=== PATIENT | male | born 1935 | race Caucasian/White ===

== ENCOUNTER 2016-11-10 09:04 | Observation (INO) | payer OTHER ==
[~2016-11-10] VITALS: Ht 195.6 cm; Wt 89.0 kg
[2016-11-10] VITALS (9 sets, daily range): BP systolic 100–149; BP diastolic 55–72; PULSE 54–76; RESP 16–18; TEMP 97.5–97.9; O2SAT 96–99
[~2016-11-10 09:04] MED LIST: B-12500T3 PO; CO Q200C3 PO; FLON0.053; GABA300C3 PO; GABA600T PO; GLIP2.5T6 PO; GLUC500C3 PO; LEVE500 PO; LIPO150C2 PO; LOSA100T3 PO; LOSARTAN 25 MG TAB PO SCH; LOVA1TAB47 PO; MAGN500T4 PO; METO25 PO; OMEP20TA39 PO; TAB-TAB PO; TERA2CAP3 PO; VESI5TAB PO
[2016-11-10] MEDS ORDERED: GLIP5TAB8 PO (09:34)
[2016-11-10] MEDS ORDERED: LOSA50TA2 PO (09:34)
[2016-11-10] MEDS ORDERED: LOVA20TA PO (09:34)
[2016-11-10] MEDS ORDERED: GABA300C5 PO (09:34)
[2016-11-10] MEDS ORDERED: FLUT50SP EACH NARE (09:34)
[2016-11-10] MEDS ORDERED: OMEP20TA PO (09:34)
[2016-11-10] MEDS ORDERED: TERA2CAP3 PO (09:34)
[2016-11-10] MEDS ORDERED: LEVE500 PO (09:34)
[2016-11-10] MEDS ORDERED: METO25TA3 PO (09:34)
--- NOTE | 2016-11-10 09:35 | PD ---
HPI Chief Complaint: Cardiac Complaint Time Seen by Provider: 09:27 Travel History International Travel<30 days: No Contact w/Intl Traveler<30days: No Traveled to known affect area: No History of Present Illness HPI 81-year-old male with a history of hypertension, hyperlipidemia, diabetes mellitus, who presents today with an episode of elevated heart rate with associated chest pain. When paramedics arrived, they found the patient to be in SVT. They administered a dental cart and he converted to sinus rhythm. The patient stated that he was feeling palpitations and dizziness and having chest pain and tightness with the palpitations. He has no history of previous SVT. The patient does have a strong family history where his father had an HI at 40 and his brother had one at 29. He does have risk factors being diabetes, hypertension, hyperlipidemia. The patient was not given aspirin. The patient does not take aspirin secondary to a previous subdural hematoma. There are no other complaints time my examination. 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) Diverticulitis: Yes Gastrointestinal Disorders: Yes GERD: Yes Genitourinary: Yes (FREQUENT URINATION) Hypertension: Yes Respiratory: Yes Immunizations Current: Yes Tetanus Vaccination: > 5 Years Influenza Vaccination: No Past Surgical History Abdominal Surgery: Yes (COLON SURGERY) Cholecystectomy: Yes Tonsillectomy: Yes Other Surgery: Yes (hernia repair) Social History Alcohol Use: No Tobacco Use: No (QUIT 1964) Substance Use: No Allergies-Medications (Allergen,Severity, Reaction): Coded Allergies: No Known Allergies (Verified , 11/10/16) Reported Meds & Prescriptions Reported Meds & Active Scripts Active Reported Diphenhydramine HCl 25 Mg Tablet 25 Tab PO DAILY Co Q-10 (Coenzyme Q10 (Ubidecarenone)) 300 Mg Cap 300 Tab PO DAILY Men's Multi-Vitamin (Multivitamin) 1 Each Tablet 1 Tab PO DAILY Potassium Gluconate 595 Mg Tab 595 Cap PO DAILY Magnesium Citrate 100 Mg Tab 500 Mg PO DAILY PRN Vitamin B-12 (Cyanocobalamin) 1,000 Mcg Tab 2,500 Mcg PO DAILY Glucosamine (Glucosamine Sulfate) 500 Mg Cap 400 Mg PO BID Keppra (Levetiracetam) 500 Mg Tab 500 Mg PO BID Lovastatin 20 Mg Tab 20 Mg PO DAILY Omeprazole 20 Mg Tab 20 Mg PO DAILY Gabapentin 300 Mg Cap 300 Mg PO TID Losartan-Hydrochlorothiazide 50-12.5 Mg Tab 0.5 Tab PO DAILY Metoprolol Tartrate 25 Mg Tab 12.5 Mg PO BID Fluticasone Nasal [place] 50 Mcg/Act Naspr 50 Mcg EACH NARE BID 50 mcg/spray Terazosin (Terazosin HCl) 2 Mg Cap 2 Mg PO BID Glipizide 5 Mg Tab 2.5 Mg PO BIDAC Take 30 minutes before a meal Review of Systems Except as stated in HPI: all other systems reviewed are Neg HENT: Positive: Lightheadedness, No: Headaches Cardiovascular: Positive: Chest Pain or Discomfort, Palpitations, Tachycardia Respiratory: No: Cough, Shortness of Breath Gastrointestinal: No: Nausea, Vomiting, Abdominal Pain Musculoskeletal: Positive: Weakness, No: Edema, Pain Neurologic: Positive: Weakness (with the palpitations none now.), Dizziness, No: Syncope, Headache Physical Exam Narrative GENERAL: Well-developed well-nourished gentleman in no acute distress SKIN: Focused skin assessment warm/dry. HEAD: Atraumatic. Normocephalic. EYES: No scleral icterus. No injection or drainage. ENT: No nasal bleeding or discharge. Mucous membranes pink and moist. NECK: Trachea midline. Supple. CARDIOVASCULAR: Regular rate and rhythm. Rate in the 70s on my exam. No murmur appreciated. RESPIRATORY: No accessory muscle use. Clear to auscultation. Breath sounds equal bilaterally. GASTROINTESTINAL: Abdomen soft, non-tender, nondistended. MUSCULOSKELETAL: No obvious deformities. No clubbing. No cyanosis. No edema. NEUROLOGICAL: Awake and alert. No obvious cranial nerve deficits. Motor grossly within normal limits. Normal speech. PSYCHIATRIC: Appropriate mood and affect; insight and judgment normal. Data Data Last Documented VS Vital Signs Date Time Temp Pulse Resp B/P Pulse Ox O2 Delivery O2 Flow Rate FiO2 11/10/16 09:38 68 17 118/66 99 Room Air 101/55 11/10/16 09:11 97.9 Orders Electrocardiogram (11/10/16 ) Electrocardiogram (11/10/16 09:27) Ckmb (Isoenzyme) Profile (11/10/16 09:27) Complete Blood Count With Diff (11/10/16 09:27) Comprehensive Metabolic Panel (6/21/17 09:27) Magnesium (Mg) (11/10/16:) Prothrombin Time / Inr (Pt) (11/10/16) Act Partial Throm Time (Ptt) (11/10/16) Troponin I (11/10/16) Chest, Single Ap (11/10/16:) Ecg Monitoring (11/10/16) Bilateral Bp Monitoring (11/10/16) Iv Access Insert/Monitor (11/10/16) Oximetry (11/10/16) Oxygen Administration (11/10/16) Sodium Chloride 0.9% Flush (Ns Flush) (11/10/16) Thyroid Stimulating Hormone (11/10/16) CKMB (11/10/16:) CKMB% (11/10/16:) Sodium Chlorid 0.9% 500 Ml Inj (Ns 500 M (11/10/16 10:45) Labs Laboratory Tests Test 11/10/16: White Blood Count 10.3 TH/MM3 Red Blood Count 3.93 MIL/MM3 Hemoglobin 12.2 GM/DL Hematocrit 36.3 % Mean Corpuscular Volume 92.4 FL Mean Corpuscular Hemoglobin 31.1 PG Mean Corpuscular Hemoglobin 33.6 % Concent Red Cell Distribution Width 14.3 % Platelet Count 165 TH/MM3 Mean Platelet Volume 9.5 FL Neutrophils (%) (Auto) 79.6 % Lymphocytes (%) (Auto) 10.7 % Monocytes (%) (Auto) 5.7 % Eosinophils (%) (Auto) 3.7 % Basophils (%) (Auto) 0.3 % Neutrophils # (Auto) 8.2 TH/MM3 Lymphocytes # (Auto) 1.1 TH/MM3 Monocytes # (Auto) 0.6 TH/MM3 Eosinophils # (Auto) 0.4 TH/MM3 Basophils # (Auto) 0.0 TH/MM3 CBC Comment DIFF FINAL Differential Comment Prothrombin Time 10.5 SEC Prothromb Time International 1.0 RATIO Ratio Activated Partial 27.8 SEC Thromboplast Time Sodium Level 145 MEQ/L Potassium Level 4.1 MEQ/L Chloride Level 111 MEQ/L Carbon Dioxide Level 24.4 MEQ/L Anion Gap 10 MEQ/L Blood Urea Nitrogen 30 MG/DL Creatinine 1.31 MG/DL Estimat Glomerular Filtration 53 ML/MIN Rate Random Glucose 168 MG/DL Calcium Level 8.3 MG/DL Magnesium Level 2.2 MG/DL Total Bilirubin 0.5 MG/DL Aspartate Amino Transf 25 U/L (AST/SGOT) Alanine Aminotransferase 25 U/L (ALT/SGPT) Alkaline Phosphatase 67 U/L Total Creatine Kinase 107 U/L Creatine Kinase MB 1.9 NG/ML Troponin I LESS THAN 0.02 NG/ML Total Protein 6.7 GM/DL Albumin 3.2 GM/DL Thyroid Stimulating Hormone 1.450 uIU/ML 3rd Gen [facility] Medical Decision Making Medical Screen Exam Complete: Yes Emergency Medical Condition: Yes Differential Diagnosis SVT versus ACS versus anginal equivalent Narrative Course 81-year-old male presents after having an episode of SVT. The patient had chest pain associated with it. The patient's cardiac enzymes are within normal limits. He converted to a normal sinus rhythm after dental cart via EMS. The patient has multiple risk factors for cardiac disease including diabetes mellitus, hypertension, hyperlipidemia. He also has a strong family history where his father had an HI at 40 and his brother had one at 29. Given this, I feel he should be ruled out in the chest pain center. I discussed with both patient and his and they're amenable to the plan. The patient's BUN/ creatinine were slightly elevated so he was given 500 cc of normal saline. His blood sugar was also elevated but less than 200 with his history of diabetes mellitus. Diagnosis Primary Impression: Chest pain Additional Impressions: SVT (supraventricular tachycardia) Hypertension Diabetes mellitus Hyperlipidemia Admitting Information Admitting Physician Requests: Observation Suman Villatoro MD Nov 10, 2016 09:35
[2016-11-10 09:49] LABS: AUTOMATED NEUTROPHIL # 8.2 TH/MM3 (1.8-7.7); BASOPHIL % 0.3 % (0.0-2.0); EOSINOPHIL # 0.4 TH/MM3 (0-0.4); EOSINOPHIL % 3.7 % (0.0-4.0); HEMATOCRIT 36.3 % (39.0-51.0); HEMO FLAGS DIFF FINAL; LYMPH % 10.7 % (9.0-44.0); LYMPHOCYTE # 1.1 TH/MM3 (1.0-4.8); MEAN CELL VOLUME 92.4 FL (80.0-100.0); MEAN CORPUSCULAR HEMOGLOBIN 31.1 PG (27.0-34.0); MEAN CORPUSCULAR HGB CONC 33.6 % (32.0-36.0); MONO % 5.7 % (0.0-8.0); NEUT % 79.6 % (16.0-70.0); PLATELET COUNT 165 TH/MM3 (150-450); RED BLOOD COUNT 3.93 MIL/MM3 (4.50-5.90); RED CELL DISTRIBUTION WIDTH 14.3 % (11.6-17.2); WHITE BLOOD COUNT 10.3 TH/MM3 (4.0-11.0)
[2016-11-10] MEDS ORDERED: GLUC500C5 PO (09:57)
[2016-11-10] MEDS ORDERED: VITA10002 PO (09:57)
[2016-11-10] MEDS ORDERED: MULT-267 PO (09:57)
[2016-11-10] MEDS ORDERED: MAGN100T2 PO (09:57)
[2016-11-10] MEDS ORDERED: DIPH25TA5 PO (09:57)
[2016-11-10] MEDS ORDERED: POTA595T PO (09:57)
[2016-11-10] MEDS ORDERED: CO Q300C PO (09:57)
[2016-11-10 09:58] LABS: APTT (PATIENT) 27.8 SEC (24.3-30.1); PROTHROMBIN TIME - PATIENT 10.5 SEC (9.8-11.6)
--- NOTE | 2016-11-10 10:18 | RADRPT ---
EXAM DATE/TIME: 11/10/2016 09:32 [facility] COMPARISON: CHEST SINGLE AP, November 26, 2014, 19:58. INDICATIONS : Chest pain. MEDICAL HISTORY : None. SURGICAL HISTORY : None. ENCOUNTER: Initial ACUITY: 1 day PAIN SCORE: 5/10 LOCATION: Bilateral chest FINDINGS: A single view of the chest demonstrates the lungs to be symmetrically aerated without evidence of mas s, infiltrate or effusion. The cardiomediastinal contours are unremarkable. Osseous structures are intact. CONCLUSION: No acute disease. Jagdeep Sims MD FACR on November 10, 2016 at 10:16 Board Certified Radiologist. This report was verified electronically.
[2016-11-10 10:30] LABS: ALKALINE PHOSPHATASE 67 U/L (45-117); ALT (GPT) 25 U/L (12-78); ANION GAP 10 MEQ/L (5-15); AST (GOT) 25 U/L (15-37); BICARBONATE 24.4 MEQ/L (21.0-32.0); BLOOD UREA NITROGEN 30 MG/DL (7-18); CHLORIDE 111 MEQ/L (98-107); CREATINE KINASE 107 U/L (39-308); GLOMERULAR FILTRATION RATE 53 ML/MIN (>89); MAGNESIUM 2.2 MG/DL (1.5-2.5); POTASSIUM 4.1 MEQ/L (3.5-5.1); SODIUM (NA) 145 MEQ/L (136-145); TOTAL BILIRUBIN ADULT 0.5 MG/DL (0.2-1.0)
[2016-11-10 10:43] LABS: CKMB 1.9 NG/ML (0.5-3.6)
[2016-11-10] MEDS ORDERED: SODIUM CHLORID 0.9% 500 ML INJ 500 ML IV ONE (10:45)
[2016-11-10] MEDS: SODIUM CHLORIDE 0.9% FLUSH 10 ML FLUSH IVF PRN ×2 (10:48→12:08)
[2016-11-10] MEDS ORDERED: ONDANSETRON HCL 4 MG/2 ML VIAL IV PRN (11:30)
[2016-11-10] MEDS ORDERED: NITROGLYCERIN 0.4 MG SL 25 TABS/BTL SL PRN (11:30)
[2016-11-10] MEDS ORDERED: ACETAMINOPHEN 500 MG CPLT PO PRN (11:30)
--- NOTE | 2016-11-10 12:21 | EKG ---
Date Performed: 11/10/2016 Time Performed: 09:14:44 PTAGE: 81 years EKG: Sinus rhythm NORMAL ECG PREVIOUS TRACING : 11/10/2016 09.14 Compared to previous tracing, heart rate has increased. DOCTOR: Anirudh Clements Interpretating Date/Time 11/10/2016 12:20:39
--- NOTE | 2016-11-10 13:15 | HHI.HP ---
HPI Primary Care Physician Jeanette Chief Complaint Chest pain History of Present Illness 81-year-old male with history of hypertension, hyperlipidemia, and diabetes rise [facility] for further evaluation chest pain. States upon awakening this morning he felt somewhat lightheaded and dizzy. He was concerned his blood sugar may have been low therefore proceeded to breakfast. He continued to feel lightheaded took his blood pressure and glucose. Blood pressure was noted to be nearly 180 systolic, and glucose 63. Later took his blood pressure and glucose may have both improved. 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 While at work he again became lightheaded although this time accompanied with chest pain. Onset of chest pain occurred approximately at 8 AM. Location left anterior chest. Characterized as a sharp constant pain. No radiation. Associated symptoms included diaphoresis. Denies shortness of breath or nausea. Denies similar pain in the past. No precipitating factors. Relieving factors was medications provided in route via EMS. Currently he has chest pain-free and without dizziness. (Marianne Dewitt) Review of Systems General: No fatigue,weakness, fever, chills, or recent illness. Has been in his general state of health. HEENT: No LEA, no vision changes, no nasal congestion or drainage, no dysphasia CV: As stated above. Denies any current chest pain or pressure. No palpitations, dizziness, or intermittent leg pain. RESP: No SOB, cough, wheeze. He does endorse on Tuesday he felt some chest congestion and fatigued and laid around most of the day. These symptoms have since subsided. GI: No nausea, vomiting, bowel changes, diarrhea, constipation, pain, distention , melena, blood in the stool. No change in appetite. : No dysuria, urgency, frequency. EXT: No lower leg edema, no paraesthesias MS: No discomfort or change in ROM, endorses bilateral lower extremity neuropathy stating "I watch my steps closely." Ambulates independently without the need of a cane or walker. NEURO: No change in memory, difficulty with balance, LOC, motor/sensory deficits PSYCH: No anxiety, depression SKIN: No rashes, no concerning lesions (Marianne Dewitt) Past Family Social History Allergies: Coded Allergies: No Known Allergies (Verified , 11/10/16) Past Medical History Hypertension, hyperlipidemia, diabetes, subdermal hematoma, diverticulosis Past Surgical History Colon surgery Reported Medications Active Reported Diphenhydramine HCl 25 Mg Tablet 25 Tab PO DAILY Co Q-10 (Coenzyme Q10 (Ubidecarenone)) 300 Mg Cap 300 Tab PO DAILY Men's Multi-Vitamin (Multivitamin) 1 Each Tablet 1 Tab PO DAILY Potassium Gluconate 595 Mg Tab 595 Cap PO DAILY Magnesium Citrate 100 Mg Tab 500 Mg PO DAILY PRN Vitamin B-12 (Cyanocobalamin) 1,000 Mcg Tab 2,500 Mcg PO DAILY Glucosamine (Glucosamine Sulfate) 500 Mg Cap 400 Mg PO BID Lovastatin 20 Mg Tab 20 Mg PO DAILY Omeprazole 20 Mg Tab 20 Mg PO DAILY Gabapentin 300 Mg Cap 300 Mg PO TID Losartan-Hydrochlorothiazide 50-12.5 Mg Tab 0.5 Tab PO DAILY Metoprolol Tartrate 25 Mg Tab 12.5 Mg PO BID Fluticasone Nasal [place] 50 Mcg/Act Naspr 50 Mcg EACH NARE BID 50 mcg/spray Terazosin (Terazosin HCl) 2 Mg Cap 2 Mg PO BID Glipizide 5 Mg Tab 2.5 Mg PO BIDAC Take 30 minutes before a meal Active Ordered Medications Current Medications Medications (Trade) Dose Ordered Sig/Elva Route Start Time Stop Time Status Last Admin (NS Flush) 2 ml UNSCH PRN IVF 11/10/16 09:30 11/10/16 12:08 (Tylenol) 500 mg Q4H PRN PO 11/10/16 11:30 (Zofran Inj) 4 mg Q6H PRN IV 11/10/16 11:30 (Nitrostat Sl) 0.4 mg Q5M PRN SL 11/10/16 11:30 (Aspirin) 325 mg DAILY PO 11/11/16 09:00 Family History Father passed weight age 42 myocardial infarction. Brother his first heart attack at age 29. States brother had multiple heart attacks at an early age and later received a heart transplant. Brother at age 75. Social History Known hypertension, hyperlipidemia, and diabetes. No known coronary artery disease. Lifelong nonsmoker. Denies any alcohol or illegal drug use. , works part-time as a anguiano, lives an active lifestyle although endorses he does not form purposeful daily cardiovascular exercise. Past cardiac testing Never has had formal cardiac testing. (Marianne Dewitt) Physical Exam Vital Signs Vital Signs Date Time Temp Pulse Resp B/P Pulse Ox O2 Delivery O2 Flow Rate FiO2 11/10/16 12:55 97.5 64 18 120/69 96 11/10/16 12:17 97.8 67 17 118/60 99 11/10/16 11:33 99 21 11/10/16 10:49 69 16 100/57 99 Room Air 11/10/16 09:38 68 17 118/66 99 Room Air 101/55 11/10/16 09:35 17 99 Room Air 11/10/16 09:35 99 Room Air 11/10/16 09:18 81 17 99 Room Air 11/10/16 09:11 97.9 76 17 117/68 99 Physical Exam GENERAL: Alert WN, WD, NAD, pleasant, elderly male HEAD: NC, AT EYES: Sclera clear, conjunctiva without injection, pupils equal and round ENT: Mucous membranes pink and moist NECK: Supple, no masses, trachea midline CV: RRR, without murmur, rub, gallop, no JVD, S1-S2 no S3-S4. RESP: Clear lungs throughout bilateral, no crackles, wheeze, rhonchi, symmetrical chest rise, nonlabored, able to speak in full sentences ABD: Soft, NT, ND, no masses, positive bowel tones BACK: No CVAT, no scoliosis EXT: Pulses +24, no dependent edema MS: Normal tone 4 extremities, nontender, no obvious deformities, full range of motion NEURO: CN II through CN XII grossly intact, motor strength 5/5, gait WNL PSYCH: A+O 3, pleasant affect, appropriate speech, appropriate mood and affect , insight and judgment SKIN: Normal turgor, normal texture, no lesions, no rashes, brisk cap refill, even hair distribution Laboratory Laboratory Tests Test 11/10/16 09:25 White Blood Count 10.3 Red Blood Count 3.93 Hemoglobin 12.2 Hematocrit 36.3 Mean Corpuscular Volume 92.4 Mean Corpuscular Hemoglobin 31.1 Mean Corpuscular Hemoglobin 33.6 Concent Red Cell Distribution Width 14.3 Platelet Count 165 Mean Platelet Volume 9.5 Neutrophils (%) (Auto) 79.6 Lymphocytes (%) (Auto) 10.7 Monocytes (%) (Auto) 5.7 Eosinophils (%) (Auto) 3.7 Basophils (%) (Auto) 0.3 Neutrophils # (Auto) 8.2 Lymphocytes # (Auto) 1.1 Monocytes # (Auto) 0.6 Eosinophils # (Auto) 0.4 Basophils # (Auto) 0.0 CBC Comment DIFF FINAL Differential Comment Prothrombin Time 10.5 Prothromb Time International 1.0 Ratio Activated Partial 27.8 Thromboplast Time Sodium Level 145 Potassium Level 4.1 Chloride Level 111 Carbon Dioxide Level 24.4 Anion Gap 10 Blood Urea Nitrogen 30 Creatinine 1.31 Estimat Glomerular Filtration 53 Rate Random Glucose 168 Calcium Level 8.3 Magnesium Level 2.2 Total Bilirubin 0.5 Aspartate Amino Transf 25 (AST/SGOT) Alanine Aminotransferase 25 (ALT/SGPT) Alkaline Phosphatase 67 Total Creatine Kinase 107 Creatine Kinase MB 1.9 Troponin I LESS THAN 0.02 Total Protein 6.7 Albumin 3.2 Thyroid Stimulating Hormone 1.450 3rd Gen (Marianne Dewitt) Result Diagram: 11/10/1692411/10/16924 Imaging Last Impressions Chest X-Ray 11/10/16926 Signed Impressions: Service Date/Time: Thursday, November 10, 2016 09:32 - CONCLUSION: No acute disease. Jagdeep Sims MD FACR Course EKGs 2 EKGs show normal sinus rhythm, normal axis, no ST or T-segment changes ( Marianne Dewitt) Assessment and Plan Assessment and Plan #1 Chest painadmitted to chest pain center. Ruled out with 2 sets of EKGs and cardiac enzymes. Seen and evaluated by Dr. Azael Cody. Patient completed Andres protocol exercise stress test which was not ischemic, without ectopy. Patient will be discharged later this evening. Chest discomfort most likely related to episode of SVT. Follow-up with PCP. #2 SVTpatient reassured SVT may not necessarily reoccur, follow-up with PCP. Continue prior home medication regimen without changes. (Marianne Dewitt) Assessment and Plan Chest pain in setting of SVT. Troponin normal times 2. will plan exercise stress test. (Azael Cody MD) Marianne Dewitt Nov 10, 2016 13:15 Azael Cody MD Nov 10, 2016 16:15
[2016-11-10] MEDS ORDERED: PILL SPLITTER OTHER PRN (13:45)
[2016-11-10] MEDS ORDERED: glipiZIDE 5 MG TAB PO SCH (16:00)
--- NOTE | 2016-11-10 16:01 | EKG ---
Date Performed: 11/10/2016 Time Performed: 12:11:00 PTAGE: 81 years EKG: Sinus rhythm NORMAL ECG WARNING: DATA QUALITY MAY AFFECT INTERPRETATION PREVIOUS TRACING : 11/10/2016 09.14 Since previous tracing, no significant change noted DOCTOR: Azael Cody Interpretating Date/Time 11/10/2016 16:00:59
--- NOTE | 2016-11-10 16:02 | EKG ---
Date Performed: 11/10/2016 Time Performed: 13:19:58 PTAGE: 81 years EKG: SINUS BRADYCARDIA BORDERLINE ECG PREVIOUS TRACING : 11/10/2016 12.11 Since previous tracing, no significant change noted DOCTOR: Azael Cody Interpretating Date/Time 11/10/2016 16:01:17
[2016-11-10] MEDS ORDERED: GABAPENTIN 300 MG CAP PO SCH (18:00)
--- NOTE | 2016-11-10 18:07 | HHI.DCPOC ---
Discharge Care Plan Diagnosis: (1) SVT (supraventricular tachycardia) (2) Atypical chest pain (3) Hyperlipidemia Goals to Promote Your Health * To prevent worsening of your condition and complications * To maintain your health at the optimal level Directions to Meet Your Goals Take your medications as prescribed Follow your dietary instruction Follow activity as directed Keep your appointments as scheduled Take your immunizations and boosters as scheduled If your symptoms worsen call your PCP, if no PCP go to Urgent Care Center or Emergency Room Smoking is Dangerous to Your Health. Avoid second hand smoke Call the 24-hour hour crisis hotline for domestic abuse at Marianne Dewitt Nov 10, 2016 18:07
[2016-11-10] MEDS ORDERED: TERAZOSIN HCL 1 MG CAP PO SCH (21:00)
[2016-11-10] MEDS ORDERED: METOPROLOL TARTRATE 25 MG TAB PO SCH (21:00)
--- NOTE | 2016-11-11 07:36 | TR ---
Date Performed: 11/10/2016 Time Performed: 17:25:37 DOCTOR: Suzanne Phillips DRUG LIST: CLINICAL HISTORY: REASON FOR TEST: Chest pain REASON FOR ENDING: OBSERVATION: CONCLUSION: Andres protocol completed. Stopped sec to reaching target heart rate and leg fatigue. Maximum UR=454 Target HR Achieved=87.0% Maximum JE=972/94 Total Exercise Time=2:44. No ectopy. No re proc chest pain. No st t seg changes to sugg ischemia. Normal bp response. Good exercise tolerance. R ecovery quick and unremarkable. COMMENTS:
[2016-11-11] MEDS ORDERED: HYDROCHLOROTHIAZIDE 25 MG TAB PO SCH (09:00)
[2016-11-11] MEDS ORDERED: PANTOPRAZOLE SOD 20 MG DELAYED RELEASE TAB PO SCH (09:00)
[2016-11-11] MEDS ORDERED: ASPIRIN 325 MG TAB PO SCH (09:00)
[2016-11-11] MEDS ORDERED: PRAVASTATIN SOD 20 MG TAB PO SCH (09:00)
== END 2016-11-10 18:54 | disposition home or self-care (01) ==
LOC: NEPC 09:04 → NEDA 10:47 → NEPFCDU 12:41
PROVIDERS: ADMIT Internal Medicine Cardiovascular Disease; ATTEND Internal Medicine Cardiovascular Disease
DX: R07.89 Other chest pain (principal); I47.1 Supraventricular tachycardia; I10 Essential (primary) hypertension; E78.5 Hyperlipidemia, unspecified; E11.9 Type 2 diabetes mellitus without complications; E78.00 Pure hypercholesterolemia, unspecified; K21.9 Gastro-esophageal reflux disease without esophagitis; M19.90 Unspecified osteoarthritis, unspecified site; Z79.84 Long term (current) use of oral hypoglycemic drugs; Z82.49 Family history of ischemic heart disease and other diseases of the circulatory system; Z87.891 Personal history of nicotine dependence
CPT/HCPCS: 71010; 80053; 82550; 82552; 83735; 84443; 84484; 85025; 85610; 85730; 93005; 93017; 99285; G0378; J7040